=== PATIENT | female | born 1985 | race Caucasian/White ===

== ENCOUNTER 2019-05-24 09:50 | Emergency (ER) | payer BC ==
[2019-05-24 10:08] VITALS: BP 105/71
--- NOTE | 2019-05-24 10:41 | UC ---
FLU HPI - HPI Summary HPI Summary: 33 yo female presents with general illness. She tells me that on 05/22 she developed fatigue, body aches, diarrhea, and nausea. 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 She had about 8-10 loose stools on 05/22 and 05/23 and states she has not eaten anything since thursday night due to nausea. Today she has had 3 episodes of loose stools, but state they are getting more firm. She still has not had anything to eat today, but has been drinking water. Overall she states she feels weak and dizzy. She is currently on her period. She denies fever, sinus symptoms, cough, sore throat, SOB, chest pain, abdominal pain, vomiting, dysuria, back pain, numbness. - History of Current Complaint Chief Complaint: UCGeneralIllness Stated Complaint: DIZZY, CHILLS Time Seen by Provider: 05/24/19 10:41 Hx Obtained From: Patient Hx Last Menstrual Period: 05/23/19 Onset/Duration: Sudden Onset Severity Currently: Mild Severity Initially: Mild Pain Intensity: 3 Pain Scale Used: 0-10 Numeric - Allergy/Home Medications Allergies/Adverse Reactions: Allergies Allergy/AdvReac Type Severity Reaction Status Date / Time No Known Allergies Allergy Verified 05/24/19 10:08 Home Medications: Home Medications Ethinyl Estradiol/Drospirenone [Drospirenone-Ee 3-0.03 mg Tab] 1 tab PO DAILY [History Confirmed 05/24/19] PMH/Surg Hx/FS Hx/Imm Hx - Additional Past Medical History Additional PMH: None - Surgical History Surgical History: Yes Surgery Procedure, Year, and Place: wisdom teeth - Family History Known Family History: Positive: None - Social History Occupation: Employed Full-time Lives: With Family Alcohol Use: Rare Substance Use Type: None Smoking Status (MU): Never Smoked Tobacco Review of Systems All Other Systems Reviewed And Are Negative: No Constitutional: Positive: Fatigue, Other - Body aches Skin: Positive: Negative Eyes: Positive: Negative ENT: Positive: Negative Respiratory: Positive: Negative Cardiovascular: Positive: Negative Gastrointestinal: Positive: Diarrhea, Nausea Genitourinary: Positive: Negative Motor: Positive: Negative Neurovascular: Positive: Negative Musculoskeletal: Positive: Negative Neurological: Positive: Negative Psychological: Positive: Negative Physical Exam - Summary Physical Exam Summary: GENERAL: NAD. Tired appearing. SKIN: No rashes, sores, or open wounds. HEENT: Head: AT/NC Eyes: PERRLA. EOM intact. Conjunctiva clear without inflammation or discharge. Ears: Hearing grossly normal. TMs intact, no bulging, erythema, or edema. Nose: Nasal mucosa pink and moist. NTTP maxillary and frontal sinus. Throat: Posterior oropharynx without exudates, erythema, or tonsillar enlargement. Uvula midline. NECK: Supple. Nontender. No lymphadenopathy. CHEST: CTAB. No r/r/w. No accessory muscle use. Breathing comfortably and in no distress. CV: RRR. Pulses intact. Brisk cap refill. ABDOMEN: Soft. NTTP. No distention or guarding. No CVA tenderness. Bowel sounds present MSK: FROM and 5/5 strength throughout. No edema. NEURO: Alert. PSYCH: Age appropriate behavior. Triage Information Reviewed: Yes Vital Signs: Initial Vital Signs Temp 97.6 F 05/24/19 10:05 Pulse 83 05/24/19 10:05 Resp 16 05/24/19 10:05 BP 105/71 05/24/19 10:05 Pulse Ox 100 05/24/19 10:05 Laboratory Tests 05/24/19 05/24/19 05/24/19 11:01 11:12 11:22 POC Urine Color Yellow POC Urine Clarity Clear POC Urine pH 7.0 POC Ur Specif [place] 1.010 POC Urine Protein 1+ A POC Ur Glucose (UA) Negative POC Urine Ketones Negative POC Urine Blood Negative POC Urine Nitrite Negative POC Urine Bilirubin Negative POC Urine Urobilinogen 0.2 POC U Leukocyte Esteras Negative POC Ur Test Negative Influenza A (Rapid) Negative Influenza B (Rapid) Negative Vital Signs Reviewed: Yes Flu Course/Dx - Course Course Of Treatment: EKG NSR 68bpm. No STEMI as read by Dr. Puentes. POC flu and UA negative. Urine negative. Discussed with pt that her symptoms could be viral, but recommended going to the ER for labwork as she appears generally tired and mildly weak. She declined and did not want to do this. I offered to give her fluids here and draw labwork and stool cultures here and, initially, she was agreeable to this. As nursing was setting up for IV placement, pt changed her mind and declined IVF and labwork. She cites a fear of needles and IVs. I discussed with her that we can give her something for anxiety or po crackers/fluids to see if she improves. She continued to decline any further eval or treatment at this time and wishes to go home. I strongly encouraged her to return or go to the ED if her symptoms continue or worsen. She certainly may return to the if she changes her mind. Pt voiced understanding - Differential Dx/Diagnosis Provider Diagnosis: Fatigue, Diarrhea Discharge ED - Sign-Out/Discharge Documenting (check all that apply): Patient Departure All imaging exams completed and their final reports reviewed: No Studies - Discharge Plan Condition: Stable Disposition: HOME Referrals: No Primary Care Phys,NOPCP [Primary Care Provider] - Additional Instructions: If you develop a fever, shortness of breath, chest pain, new or worsening symptoms - please call your PCP or go to the ED immediately. If you change your mind about receiving fluids or undergoing additional testing - please call or return to the Urgent Care or ER - Billing Disposition and Condition Condition: STABLE Disposition: Home
[2019-05-24] MEDS ORDERED: Ondansetron INJ* 2 MG/ML VIAL IV ONE (10:53)
[2019-05-24] MEDS ORDERED: NS 0.9% 1000 ML** 1,000 ML IV ONE ×2 (10:53)
[2019-05-24 11:12] LABS: Influenza A Molecular NEGATIVE (Negative); Influenza B Molecular NEGATIVE (Negative)
== END 2019-05-24 12:00 | disposition home or self-care (01) ==
LOC: UCEAST 09:50
DX: R53.83 Other fatigue (principal); R19.7 Diarrhea, unspecified; R11.0 Nausea
CPT/HCPCS: 81003; 84702; 99212; G0463